=== PATIENT | female | born 1980 | race African-American/Black ===

== ENCOUNTER → 2017-04-17 | Outpatient (CLI) | payer OTHER ==
[~2017-04-17] MED LIST: ISOVUE-370 76% 100ML VIAL (Q9967) As Ordered ONE
--- NOTE | 2017-04-20 08:59 | REP ---
Clinical: Tubal reversal. Technique: Real time fluoroscopic evaluation performed in conjunction with the T[employer] CAL[employer]RATOR. Findings: Initial fluoroscopic image of the pelvis is unremarkable and demonstrates speculum and catheter in satisfactory position along with bilateral Filshie clips. Contrast administration demonstrates normal contour to the uterus and normal bilateral fallopian tubes terminating at the Filshie clips without obstruction or abnormal luminal contour. The opacified right fallopian tube from the ureterotubal junction to the clip measures 39 mm. The opacified left fallopian tube from the ureterotubal junction to the clip measures 36 mm. Total fluoroscopic time: 79 seconds. Impression: 1. Evidence for bilateral tubal ligation. 2. Normal contour to the uterus. Signed by Fili Salgado MD 04/20/2017 08:58 A
== END ==
LOC: M RADPRO 12:14
PROVIDERS: ATTEND Obstetrics & Gynecology
DX: Z31.0 Encounter for reversal of previous sterilization (principal)
CPT/HCPCS: 58340; 74740; Q9967

== ENCOUNTER → 2017-05-28 | Outpatient (CLI) | payer OTHER ==
--- NOTE | 2017-05-29 06:49 | REP ---
MRI study of the brain and pituitary without and with IV gadolinium: History: Hyperprolactinemia. No comparison imaging. Technique: Axial, coronal and sagittal imaging planes are utilized. T1 and T2-weighted sequences include spin echo, turbo spin echo, FLAIR, diffusion weighted scans, and dynamically acquired thin section coronal post gadolinium enhanced imaging of the pituitary. Post gadolinium enhanced whole brain T1-weighted scan sequences acquired as well. Gadolinium enhancement dose: Half-dose protocol was utilized. 8 ml of intravenous ProHance was administered. MRI findings: Midline sagittal images demonstrate 13 mm of tonsillar ectopia with mild compression of the cervicomedullary junction consistent with Arnold Chiari type I malformation. There is no evidence of upper cervical cord syrinx or hydrocephalous. No other intracranial malformation is appreciated. There is no evidence of intracranial hemorrhage or mass. Diffusion weighted scan show no evidence of restricted diffusion to suggest acute ischemia. There is a curvilinear area of increased T2 decreased T1 signal intensity in the periventricular white matter of the right posterior frontal lobe region. This may be dilated perivascular space as a normal variant. No other abnormal white matter lesion is seen. Dynamically acquired thin section coronal images through the pituitary show no evidence of pituitary micro or macroadenoma. The pituitary stalk is in the midline. The suprasellar cistern in the cavernous sinuses are unremarkable. Optic chiasm is not displaced. No abnormal gadolinium enhancement is seen on post gadolinium enhanced images. 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 Normal pituitary study. No evidence of hydrocephalus. Signed by Jose Calderon MD 05/29/2017 07:58 A
== END ==
LOC: M RAD 17:19
PROVIDERS: ATTEND Obstetrics & Gynecology
DX: E22.1 Hyperprolactinemia (principal)
CPT/HCPCS: 70553; A9576